=== PATIENT | male | born 1960 | race Caucasian/White ===

== ENCOUNTER → 2021-09-03 | Outpatient (CLI) | payer OTHER ==
--- NOTE | 2021-09-03 16:20 | XR ---
EXAM TYPE: LUMBAR SPINE X RAY SERIES COMPARISON: NONE HISTORY: Pain TECHNIQUE: 4 views are submitted. FINDINGS: Alignment is anatomic. The pedicles are intact. The transverse processes are intact. There is no s pondylolysis or spondylolisthesis. Severe degenerative disc disease L4-5 and L5-S1 with facet arthro kiah. Mild changes at the thoracolumbar junction. Vascular calcifications noted. IMPRESSION: 1. Multilevel severe degenerative disc disease.
--- NOTE | 2021-09-03 16:24 | XR ---
EXAMINATION TYPE: XR cervical spine comp DATE OF EXAM: 09/03/2021 COMPARISON: NONE HISTORY: Pain TECHNIQUE: Four views are submitted. FINDINGS: There is postsurgical change suggestive of fusion involving the C3 through cervical thoracic junction . There is multilevel facet arthropathy with severe degenerative disc disease C3-C4 and grade 1 anter olisthesis. Degenerative disc disease C2-C3 with grade 1 anterolisthesis. Vague nodular density seen in the right upper lobe on the frontal view of the cervical spine. IMPRESSION: 1. Suggestion of a pulmonary nodule in the right upper lobe recommend standard chest x-ray. 2. Postsurgical change involving the cervical spine with multilevel foraminal encroachment and facet arthropathy. 3. Severe degenerative disc disease C3-C4 with grade 1 anterolisthesis. 4. Moderate degenerative disc disease C2-C3 with anterolisthesis. Consider either CT scan or MRI.
== END | disposition home or self-care (01) ==
LOC: RADXRMAIN 15:29
PROVIDERS: ATTEND Family Medicine
DX: M51.9 Unspecified thoracic, thoracolumbar and lumbosacral intervertebral disc disorder (principal); Z98.1 Arthrodesis status
CPT/HCPCS: 72050; 72110

== ENCOUNTER → 2021-09-21 | Outpatient (CLI) | payer MEDICARE, OTHER ==
--- NOTE | 2021-09-23 14:12 | CT ---
EXAMINATION TYPE: CT chest wo con DATE OF EXAM: 09/21/2021 COMPARISON: NONE HISTORY: SHORTNESS OF BREATH,COPD,TOBACCO USE CT DLP: 460.6 mGycm. Automated Exposure Control for Dose Reduction was Utilized. TECHNIQUE: CT scan of the thorax is performed without IV contrast. FINDINGS: LUNGS: Moderate underlying emphysematous change with peripheral bleb formation and reticulation bilat erally. There is 5 mm anterior right mid lung nodule axial image 35. No suspicious greater than 5 mm pulmonary nodules or masses. No pleural effusion or pneumothorax is seen bilaterally. No suspicious f ocal consolidation. MEDIASTINUM: Lack of IV contrast is noted to limit evaluation for mediastinal and especially hilar ad enopathy. There are some prominent but subcentimeter lymph nodes scattered throughout the prevascular space, AP, and subcarinal levels. No cardiomegaly or pericardial effusion is seen. OTHER: Surgical change to the cervical spine is partially imaged. IMPRESSION: Moderate underlying emphysematous change without acute pulmonary process. There is 5 mm p eripheral right middle lobe nodule. Consider follow-up CT in one year time to reassess per Fleischner Society recommendations in high risk patient.
== END | disposition home or self-care (01) ==
LOC: RADCTMAIN 15:52
PROVIDERS: ATTEND Family Medicine
DX: J44.9 Chronic obstructive pulmonary disease, unspecified (principal); R06.02 Shortness of breath; Z72.0 Tobacco use
CPT/HCPCS: 71250

== ENCOUNTER 2022-09-10 13:45 | Emergency (ER) | payer MEDICARE, OTHER ==
--- NOTE | 2022-09-10 15:50 | ED ---
General Adult HPI - General Chief complaint: Extremity Injury, Lower Stated complaint: Right ankle pain Time Seen by Provider: 09/10/22 14:05 Source: patient, family, RN notes reviewed, old records reviewed Mode of arrival: ambulatory Limitations: no limitations - History of Present Illness Initial comments: This a 62-year-old male who states he had ankle surgery many years ago and he feels a little bump on the lateral aspect of his right ankle and it's more sore than it normally is. Patient states he hasn't injured hasn't bumped it there is no redness no swelling no fever. Patient just wants to get an x-ray to make sure the screws backing out. - Related Data Allergies Allergy/AdvReac Type Severity Reaction Status Date / Time Penicillins Allergy Unknown Verified 09/10/22 14:09 Childhood Review of Systems ROS Statement: Those systems with pertinent positive or pertinent negative responses have been documented in the HPI. ROS Other: All systems not noted in ROS Statement are negative. Past Medical History Past Medical History: COPD, Hypertension History of Any Multi-Drug Resistant Organisms: None Reported Past Surgical History: Orthopedic Surgery Past Psychological History: Anxiety, Depression Smoking Status: Former smoker, Vaper Past Alcohol Use History: Rare Past Drug Use History: Marijuana General Exam - General Exam Comments Initial Comments: GENERAL Patient is well-developed and well-nourished. Patient is in mild distress. EYES Patient's pupils are equal and round. Extraocular motion is intact SKIN Unremarkable NEURO The patient is alert and oriented 3 PYSCH Patient has normal interpersonal interactions. MUSCULOSKELETAL Patient has tenderness to the distal fibula on the right. There is a small bump that feels like a lipoma cousin's mobile but other than that there is no redness or swelling Limitations: no limitations Course Vital Signs 09/10/22 14:05 Temperature 97.2 F L Pulse Rate 97 Respiratory 18 Rate Blood Pressure 132/85 O2 Sat by Pulse 98 Oximetry Disposition Clinical Impression: Ankle pain Disposition: HOME SELF-CARE Instructions (If sedation given, give patient instructions): Leg Pain (ED) Is patient prescribed a controlled substance at d/c from ED?: No Referrals: Terra Bonilla MD [Primary Care Provider] - 1-2 days Time of Disposition: 15:25
[2022-09-10 16:03] VITALS: BP 129/76; PULSE 89; RESP 16; TEMP 97.6
--- NOTE | 2022-09-10 17:14 | XR ---
EXAMINATION TYPE: XR ankle complete RT DATE OF EXAM: 09/10/2022 COMPARISON: NONE HISTORY: Pain TECHNIQUE: Frontal, lateral and oblique images of the left ankle are obtained. FINDINGS: There is no acute fracture/dislocation evident. Fixation hardware demonstrated involving the distal fibula which appears intact. The joint spaces appear within normal limits. Mild soft tissue swelling over the lateral malleolus. IMPRESSION: 1. No acute fracture or dislocation. 2. Fixation changes involving the distal fibula. Hardware appears intact. 3. Mild soft tissue swelling over the lateral malleolus. MTDD
== END 2022-09-10 16:03 | disposition home or self-care (01) ==
LOC: EC 13:45
DX: M25.571 Pain in right ankle and joints of right foot (principal); J44.9 Chronic obstructive pulmonary disease, unspecified; I10 Essential (primary) hypertension; Z86.59 Personal history of other mental and behavioral disorders; F17.290 Nicotine dependence, other tobacco product, uncomplicated; F12.90 Cannabis use, unspecified, uncomplicated; Z88.0 Allergy status to penicillin
CPT/HCPCS: 99283

== ENCOUNTER → 2022-09-17 | Outpatient (CLI) | payer MEDICARE, OTHER ==
--- NOTE | 2022-09-17 11:55 | US ---
EXAMINATION TYPE: US venous doppler duplex LE RT DATE OF EXAM: 09/17/2022 11:11 AM COMPARISON: NONE CLINICAL INDICATION: Male, 62 years old with history of M25.571 PAIN IN RT ANKLE; pain rt ankle SIDE PERFORMED: Right TECHNIQUE: The lower extremity deep venous system is examined utilizing real time linear array sonog john with graded compression, doppler sonography and color-flow sonography. VESSELS IMAGED: Common Femoral Vein Deep Femoral Vein Greater Saphenous Vein * Femoral Vein Popliteal Vein Small Saphenous Vein * Proximal Calf Veins (* superficial vessels) Right Leg: Negative for DVT IMPRESSION: No evidence for DVT within the right lower extremity imaged from the groin to the upper calf.
== END | disposition home or self-care (01) ==
LOC: RADUSWWP 10:48
PROVIDERS: ATTEND Family Medicine
DX: M25.571 Pain in right ankle and joints of right foot (principal)

== ENCOUNTER → 2022-09-23 | Outpatient (CLI) | payer MEDICARE, OTHER ==
--- NOTE | 2022-09-23 09:07 | CT ---
EXAMINATION TYPE: CT chest wo con DATE OF EXAM: 09/23/2022 COMPARISON: 09/21/2021 HISTORY: Pulmonary nodule. Shortness of breath. CT DLP: 406.[address] of the chest was performed with lung and mediastinal window settings submitted. The la ck of contrast limits evaluation of the vascular, mediastinal and parenchymal structures including th e upper abdomen. LUNGS: There is moderate paraseptal emphysema noted unchanged from prior study with associated reticu lations. Right middle lobe pulmonary nodular density measuring 4 mm is again noted versus prior measu rement of 5 mm. No new nodules are identified. No evidence for infiltrate or pleural effusion. No vol ume loss present. MEDIASTINUM/SHYANN: Thoracic aorta is of normal caliber with limited evaluation given lack of contrast . The heart is not enlarged. No evidence for mediastinal mass. No lymph nodes greater than 1cm. UPPER ABDOMEN: No significant abnormality is seen. OTHER: No significant other abnormality. IMPRESSION: 1. Moderate paraseptal emphysema unchanged. 2. 4 mm pulmonary nodule right middle lobe is unchanged or slightly smaller in size. Stability over a two-year time frame should be documented radiographically.
--- NOTE | 2022-09-23 09:44 | CT ---
EXAMINATION TYPE: CT ankle RT wo con DATE OF EXAM: 09/23/2022 COMPARISON: Radiograph 09/10/2022 HISTORY: 62-year-old male Right lateral fibular pain. Hx of surgery x10 years ago, no recent injury. TECHNIQUE: Contiguous axial scanning of the right ankle without IV contrast. Coronal and sagittal rec onstructions performed. 3-D reconstructions generated on a dedicated independent workstation. CT DLP: 242.1 mGycm Automated exposure control for dose reduction was used. FINDINGS: Previous lateral plate and screw fixation distal fibula. Orthopedic hardware appears uncomplicated. There is joint space narrowing and significant bony irregularity at the distal tibiofibular joint, re ference axial image 52. Approximately 4 punctate loose bodies anteriorly measuring up to 4 mm. Otherwise, the syndesmosis appears intact. There is mild degenerative spurring posteriorly at the tibiotalar joint. Sagittal subchondral bony ir regularity involving the anterior to mid medial talar dome, image 42 and sagittal image 32. Subtalar joint is aligned. Small delineation to the Achilles tendon. Origin of the plantar fascia princess ears intact. No tibiotalar joint effusion or other discrete abnormality is seen. Type I accessory navicular. IMPRESSION: 1. POSTTRAUMATIC OA DISTAL TIBIOFIBULAR JOINT WITH NARROWED AND IRREGULAR JOINT SPACE. A FEW PUNCTATE LOOSE BODIES MEASURING UP TO 4 MM ANTERIORLY. 2. UNCOMPLICATED LATERAL PLATE AND SCREW FIXATION DISTAL FIBULA. 3. MILD FOCAL OSTEOARTHRITIC CHANGE TIBIOTALAR JOINT BOTH POSTERIORLY AND ALONG THE ANTERIOR TO MID M EDIAL TALAR DOME.
== END | disposition home or self-care (01) ==
LOC: RADCTMAIN 07:36
PROVIDERS: ATTEND Family Medicine
DX: J43.8 Other emphysema (principal); M19.071 Primary osteoarthritis, right ankle and foot; M24.08 Loose body, other site; R91.1 Solitary pulmonary nodule
CPT/HCPCS: 71250